=== PATIENT | male | born 1990 ===

== ENCOUNTER 2017-03-04 23:47 | Emergency (ER) | payer BC ==
[2017-03-04 23:55] VITALS: BMI 31.4
[2017-03-05] MEDS ORDERED: Oxymetazoline 0.05% Nasal Spray (30 ml) NS STA (00:26)
[2017-03-05] MEDS ORDERED: Sodium Chloride 0.9% 1,000 ML IV STA ×2 (01:00→02:00)
--- NOTE | 2017-03-05 02:10 | ED PDOC ---
Arrival/HPI - General Chief Complaint: ENT Problem Time Seen by Provider: 03/05/17 00:17 Historian: Patient - History of Present Illness Narrative History of Present Illness (Text): 03/05/17 00:23 A 26 year old male, with no significant past medical history, presents to the emergency department complaining of bright red epistaxis on and off for 3 days. Patient reports today nose bleed episode was continous for 1 hour. Patient visited ENT doctor today for evaluation and was found to not be bleeding at the time. Here in the ER, patient is currently bleeding with clots. Unable to visualize source of bleeding. He mentions having septum correction performed February 20 recently. Patient has no other complaints. Surgeon: Dr. Olivo Time/Duration: < week (3 days) Past Medical History - Provider Review Nursing Documentation Reviewed: Yes - Psychiatric Hx Substance Use: No - Surgical History Hx Orthopedic Surgery: Yes (rt ankle) Other/Comment: deviated septum 02/20/17 Family/Social History - Physician Review Nursing Documentation Reviewed: Yes Family/Social History: No Known Family HX Smoking Status: Never Smoked Hx Alcohol Use: Yes Frequency of alcohol use: Socially Hx Substance Use: No Allergies/Home Meds Allergies/Adverse Reactions: Allergies Penicillins Allergy (Verified 03/04/17 23:55) ANAPHYLAXIS Review of Systems - Physician Review All systems were reviewed & negative as marked: Yes - Review of Systems Constitutional: absent: Other (no other complaints given by patient) ENT: Epistaxis (bright red) Physical Exam Vital Signs Reviewed: Yes Vital Signs Pulse Resp BP Pulse Ox 03/05/17 03:59 78 18 158/91 H 100 03/05/17 02:25 84 19 133/69 100 03/04/17 23:55 86 20 148/84 98 Temperature: Afebrile Blood Pressure: Normal Pulse: Regular Respiratory Rate: Normal Appearance: Positive for: Well-Appearing Pain Distress: None Mental Status: Positive for: Alert and Oriented X 3 - Systems Exam Nose (Internal): No: No Active Bleeding (active bleeding from both nares; packed left nare although it continuous to bleed; unable to pack right nare; unable to visualize source of bleeding) Medical Decision Making ED Course and Treatment: 03/05/17 00:26 Impression: 26 year old male with epistaxis. Plan: -- EKG -- Labs -- Afrin -- Zithromax -- Oxycodone -- IV Fluids -- Nasal Packing -- Reassess and disposition Progress Notes: PROCEDURE: EPISTAXIS MANAGEMENT Performed by the emergency provider Consent: Informed consent was obtained after discussion of the risks, benefits, and alternatives to the procedure. Timeout: A timeout to verify the correct patient, procedure, and site was performed immediately prior to the procedure. Indication: Nasal bleeding control Location: {left/right} naris Medication: Bleeding Source: {POSTERIOR / MIDDLE / ANTERIOR / Septal} Cautery: Packing: Post-procedure: Good hemostasis. The patient was observed following procedure and no repeat episode of bleeding was noted. Patient tolerated the procedure well with no immediate complications. 03/05/2017 00:[address] Olivo, surgeon, who states ENT should be notified of patient bleeding. ENT on-call was called. 03/05/2017 00:40 Told ENT patient continues to bleed despite packing of left nare, and unable to pack right nare. Unable to visualize bleeding source. 03/05/17 01:00 ENT recommends antibiotics and prompt follow-up with Dr. Olivo. Patient understands plan. - Lab Interpretations Lab Results: 03/05/17 01:10 03/05/17 01:10 Lab Results 03/05/17 03:09: Blood Type Confirm B POSITIVE 03/05/17 02:15: Blood Type B POSITIVE, Antibody Screen Negative, BBK History Checked No verified bt 03/05/17 01:10: Sodium 144, Potassium 4.5, Chloride 103, Carbon Dioxide 30, Anion Gap 15, BUN 11, Creatinine 1.0, Est GFR ( Amer) > 60, Est GFR (Non- Af Amer) > 60, Random Glucose 102, Calcium 9.6, Total Bilirubin 0.8, AST 35, ALT 59 H, Alkaline Phosphatase 52, Total Protein 7.6, Albumin 4.4, Globulin 3.2 , Albumin/Globulin Ratio 1.4 03/05/17 01:10: PT 12.3, INR 1.08 03/05/17 01:10: WBC 8.3, RBC 4.91, Hgb 14.6, Hct 42.6, MCV 86.8, MCH 29.7, MCHC 34.3, RDW 12.4, Plt Count 254, MPV 10.2 - Medication Orders Current Medication Orders: Discontinued Medications Azithromycin (Zithromax) 500 mg PO STAT STA PRN Reason: Protocol Stop: 03/05/17 04:26 Last Admin: 03/05/17 04:34 Dose: 500 mg Sodium Chloride (Sodium Chloride 0.9%) 1,000 mls @ 999 mls/hr IV .Q1H1M STA Stop: 03/05/17 02:00 Last Admin: 03/05/17 01:13 Dose: 999 mls/hr eMAR Start Stop Document 03/05/17 01:13 RD (Rec: 03/05/17 02:28 RD [id number]) Intravenous Solution Start Date 03/05/17 Start Time 01:13 End Date 03/05/17 End time 02:13 Total Infusion Time 60 Sodium Chloride (Sodium Chloride 0.9%) 1,000 mls @ 999 mls/hr IV .Q1H1M STA Stop: 03/05/17 03:00 Last Admin: 03/05/17 02:18 Dose: 999 mls/hr eMAR Start Stop Document 03/05/17 02:18 RD (Rec: 03/05/17 02:29 RD [id number]) Intravenous Solution Start Date 03/05/17 Start Time 02:18 End Date 03/05/17 End time 03:18 Total Infusion Time 60 Oxycodone HCl (Oxycodone Immediate Release Tab) 5 mg PO STAT STA Stop: 03/05/17 03:43 Last Admin: 03/05/17 03:55 Dose: 5 mg MAR Pain Assessment Document 03/05/17 03:55 DEVON (Rec: 03/05/17 03:55 DEVON [id number]) Pain Reassessment Is this a pain reassessment? Yes Presence of Pain Presence of Pain No Location Pain Location Body Site Nose Oxymetazoline HCl (Afrin 0.05%) 0 ml NS STAT STA Stop: 03/05/17 00:27 Last Admin: 03/05/17 01:14 Dose: - Scribe Statement The provider has reviewed the documentation as recorded by the Delvis Montoya Provider Scribe Attestation: All medical record entries made by the Scribemma were at my direction and personally dictated by me. I have reviewed the chart and agree that the record accurately reflects my personal performance of the history, physical exam, medical decision making, and the department course for this patient. I have also personally directed, reviewed, and agree with the discharge instructions and disposition. Disposition/Present on Arrival - Present on Arrival Any Indicators Present on Arrival: No History of DVT/PE: No History of Uncontrolled Diabetes: No Urinary Catheter: No History of Decub. Ulcer: No History Surgical Site Infection Following: None - Disposition Have Diagnosis and Disposition been Completed?: Yes Diagnosis: Epistaxis Disposition: HOME/ ROUTINE Disposition Time: 03:50 Condition: IMPROVED Discharge Instructions (ExitCare): Nosebleed (ED) Additional Instructions: Thank you for letting us take care of you today. The emergency medical care you received today was directed at your acute symptoms. If you were prescribed any medication, please fill it and take as directed. It may take several days for your symptoms to resolve. Return to the Emergency Department if your symptoms worsen, do not improve, or if you have any other problems. Please contact your doctor or call one of the physicians/clinics you have been referred to that are listed on the Patient Visit Information form that is included in your discharge packet. Bring any paperwork you were given at discharge with you along with any medications you are taking to your follow up visit. Our treatment cannot replace ongoing medical care by a primary care provider (PCP) outside of the emergency department. Thank you for allowing the [facility] team to be part of your care today. Follow up with your ENT doctor this morning for re-evaluation and further management. Prescriptions: Azithromycin [Zithromax] 250 mg PO DAILY #4 tab oxyCODONE [oxyCODONE Immediate Release Tab] 5 mg PO Q6 PRN #12 tab PRN Reason: Pain, Severe (8-10) Referrals: Travis Castanon MD [Medical Doctor] - Follow up with primary Forms: [employer] (Dutch)
[2017-03-05 02:25] VITALS: O2SAT 100
[2017-03-05 02:45] LABS: HEMOGLOBIN 14.6 g/dL (14.0-18.0); MEAN CELL VOLUME 86.8 fl (80.0-105.0); MEAN CORPUSCULAR HEMOGLOBIN 29.7 pg (25.0-35.0); MEAN CORPUSCULAR HGB CONC 34.3 g/dl (31.0-37.0); MEAN PLATELET VOLUME 10.2 fl (7.0-11.0); RBC 4.91 10^6/uL (3.5-6.1); RED CELL DISTRIBUTION WIDTH 12.4 % (11.5-14.5); WHITE BLOOD COUNT 8.3 10^3/ul (4.5-11.0)
[2017-03-05 02:51] LABS: INR 1.08 (0.93-1.08); PROTHROMBIN TIME 12.3 SECONDS (9.4-12.5)
[2017-03-05 03:02] LABS: ALB/GLOB RATIO 1.4 (1.1-1.8); ALBUMIN 4.4 g/dL (3.0-4.8); ALT/SGPT 59 U/L (7-56); AST/SGOT 35 U/L (17-59); BLOOD UREA NITROGEN 11 mg/dL (7-21); CALCIUM 9.6 mg/dL (8.4-10.5); GFR AFRICAN-AMERICAN > 60; GFR NON-AFRICAN AMERICAN > 60
[2017-03-05] MEDS ORDERED: Morphine 2 mg/ml ISec IM STA (03:41)
[2017-03-05] MEDS ORDERED: oxyCODONE 5 mg Immediate Release Tab PO STA (03:42)
[2017-03-05 04:01] VITALS: BP 158/91; PULSE 78; RESP 18
--- NOTE | 2017-03-05 10:45 | CARD ---
APPROVED REPORT EKG Measurement Heart [id number] <Conclusion> Normal sinus rhythm Incomplete right bundle branch block Borderline ECG
--- NOTE | 2017-03-06 01:48 | CON ---
DATE: 03/05/2017 EARS, NOSE AND THROAT CONSULTATION CONSULTING PHYSICIAN: Dr. Scot Villafana. REFERRING PHYSICIAN: Dr. Ferrell __Cheko___. REASON FOR CONSULTATION: Epistaxis. HISTORY OF PRESENT ILLNESS: This is a 26-year-old male. No significant past medical history other than deviated nasal septum and chronic sinusitis for which he had a functional endoscopic sinus surgery performed approximately 10 days ago by an outside physician. The patient has been following up with that physician in the office. Most recently, the day of presentation to the ER for his mild epistaxis. He was not instructed to do anything specific to the mild epistaxis, was being seen in the office. Tonight about 3 hours prior to arrival, the patient noted severe epistaxis specifically from the left side of his naris, he reports filling up several buckets of blood and also coughing up a lot of blood as well. He came to [facility] with this condition. Upon arrival to the Emergency Room, a 7.5 Rapid Rhino packing was inserted into the left naris. He continued to bleed for a small amount of time for which ears, nose, and throat services was consulted. Upon evaluation by ears, nose, and throat with Rapid Rhino is noted to be in place in the left naris and epistaxis has stopped at this point. He does have some clots around the outside of his nares; however, no bleeding down the back of his throat at this time. The patient also has a history as above. He denies any other prior episodes of epistaxis or trauma to his nose or prior sinus surgery before this one. Otherwise, he denies any ear, nose, and throat complaints. PAST MEDICAL HISTORY: Deviated nasal septum, chronic sinusitis. PAST SURGICAL HISTORY: Functional endoscopic sinus surgery 10 days ago and leg surgery several years ago. MEDICATIONS: He does not have any home medications. ALLERGIES: HE IS ALLERGIC TO PENICILLIN. REVIEW OF SYSTEMS: Negative as per HPI. PHYSICAL EXAMINATION: VITAL SIGNS: Blood pressure is 150/87, heart rate is 63, respirations are 18, temperature is 98.7 and O2 sat is 98% on room air. GENERAL: He is awake, alert, and oriented x3, in mild distress. HEENT: Head is atraumatic, normocephalic. Pupils are equal, round, and reactive to light. Ears are atraumatic and normal. Nose; there is a 7.5 Rapid Rhino packing with some blood clots to the left naris and the right naris is patent. No active epistaxis. Oral cavity; oropharynx, there is some dried blood around the oral cavity. Tongue is mobile in midline. Mucosa is moist. Very small amount of a trace bleeding in the posterior oropharynx. No clots are seen. NECK: Supple. Nontender. LABORATORY DATA: There are no labs at this point. PROCEDURE: Packing of the right naris after topical decongestant with Afrin and lidocaine-soaked sponges which were placed in the right naris. The balloon on the left side of the nose was taken down in order to make room for packing to be placed on the right side of the nose. was inserted on the right side of the nose. No active bleeding was seen on the right side. Afterwards, the balloon was inflated on the Rapid Rhino again on the left hand side with adequate hemostasis noted. ASSESSMENT AND PLAN: This is a 26-year-old male who is about 10 days status post functional endoscopic sinus surgery, presented to the Emergency Room with epistaxis. At this point, epistaxis seems to have been developed with bilateral packing to the nares, which is indicated and necessary at this time given that he had recent septum surgery and without bilateral packing on one side of the nose which created deviated nasal septum again. As the patient's epistaxis is currently controlled, we will have him follow up with the surgeon who performed the surgery, the first thing tomorrow morning. This was communicated and the patient verbalized understanding. We will place him on prophylactic antibiotic azithromycin for packing in his nose, would also prescribed him with some pain medicine at this point as the packing can be quite painful. Recommend checking his labs, his hemoglobin given the history of epistaxis. Otherwise, the patient is stable and safe to be discharged home at the Emergency Room discussion. The patient should follow up with the primary surgeon, but can also come see us in the office. If necessary, he will provide us the information and apparently he is provided with our contact information. Thank you for allowing us to participate in this patient's care. Scot Villafana DO [email or web address]
== END 2017-03-05 04:45 | disposition home or self-care (01) ==
LOC: MERGE 23:47 → ED 23:47
DX: R04.0 Epistaxis (principal)
CPT/HCPCS: 30901; 80053; 85027; 85610; 86850; 86900; 93005; 96360; 96361; 99284; J7040